=== PATIENT | male | born 1965 | race Caucasian/White ===

== ENCOUNTER 2025-01-16 09:37 | Outpatient (AMB) | payer OTHER, SELFPAY ==
--- NOTE | 2025-01-16 09:45 | A.OFFPC_ITS ---
Vital Signs 3 01/16/25 09:51 Height 6 ft Weight 201 lb BMI 27.3 BP 117/67 Blood Pressure Location Lt brachial Position Sitting Respiration 12 Pulse 68 Pulse Source Pulse Oximeter Temp 97.6 F Temp Source Oral Pulse Oximetry (%) 100 Oxygen Delivery Method Simple Mask Intake Visit Reasons: Neurology Hospitalist establish care Intake Note: New patient to establish care Configuration Engineer Required: No Allergies No Known Allergies Allergy (Verified 01/16/25 09:46) Medication List - Last Reconciled 01/16/25 by RANDI Gonzalez- aspirin 81 mg PO DAILY diltiazem HCl ER 180 mg PO DAILY hydrochlorothiazide 25 mg PO QAM losartan 100 mg PO DAILY pantoprazole 40 mg PO BID Tobacco use date assessed: 01/16/25 Dental Screening Dental Screen Date: 01/16/25 Did you have a dental visit in the last 12 months?: No Did you have a dental problem in the last 6 months where you did not have access to dental care?: No Was dental information given to patient?: No HPI HPI Comments 2 History of Present Illness0 Details Here today for a Transitional Care Management Visit Discharge summary reviewed. 59 y/o M with esophageal carcinoma (01/01 25), polyneuritis, etoh dependence, HTN, erosive gastritis, Cobb's Esophagous, subacute nondisplaced posterior L 3,6,7,8 subacute rib fractures (12/2024) Severe CAD, 3 mm RUL nodule, severe PAD with calcified plaques and critical stenosis of R superficial femoral artery and L common femoral and L superficial artery, chronic anemia, hx of GIB , tubular adenoma of colon, duodenal ulcer admitted for etoh withdrawl 12/24-12/26/24, drinking 10-12 nips per day; treated w/ phenobarb and CIWA protocol. Returned for scheduled EGD and had complications of IV infilatrate requiring re-admit for monitoring 12/27-12/28/24. Admission Date: 12/24/24 and d/c home 12/27/24, readmitted 12/27/24 Discharge Date: 12/28/24 Hospital: [facility] Date of interactive contact with Nurse Vergara: as documented in chart Medications reconciled & updated. During todays TCM visit, the d/c summary was reviewed, along with the need for or follow-up on pending diagnostic tests and treatments, as necessary interaction with other health respiratory care technician who will assume or reassume care of the beneficiary?s system-specific problems was done or is being worked on, education was provided to the beneficiary, family, guardian, and/or caregiver, referrals to establish or re-establish and arrange needed community resources we completed, assistance in scheduling required follow-up with community providers and services & finally updated medication list given to patient/caregiver Admissions: GIB [facility] ETOH withdrawl IV complication social: lives w/ sig other, Brenda. 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 New patient to me, first visit today. - Esophageal carcinoma with recent endos copic findings; awaiting PET scan and oncology consultation. - Significant history of alcohol depende nce, currently managing three weeks of sobriety. - Hypertension with current pharmacother apy regimen. - Erosive gastritis treated with pantopr azole. 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 - Severe coronary artery disease; periph eral arterial disease of the lower extremities with blockages. - Anemia due to a history of GI bleed. - Tubular adenoma and duodenal ulcer not ed in past evaluations. - New dysuria and weak urinary stream; p ossible prostate evaluation considered. - Long-standing smoking habit linked to arterial disease. - Lightheadedness during urination likel y due to low blood counts. - Not working due to medical issues but has the support of significant other. - Needs FMLA and short term dis. ppw com pleted, this was done today Review of Systems - Cardiovascular: Reports history of sev ere coronary artery disease, lower extremity blockages. - Gastrointestinal: Reports history of e sophageal carcinoma, gastritis, Cobb's esophagus, duodenal ulcer, tubular adenoma. - Genitourinary: Reports dysuria, weak u rinary stream, increased frequency. Denies blood in urine. - Hematologic: Reports history of chroni c anemia. - Addiction/Substance Use: Reports three weeks of sobriety from alcohol, history of smoking. - Mental Health: Denies need for addicti on medicine support. - Neurological: Reports lightheadedness with urination. - Respiration: Denies shortness of breat h, chest pain. Physical Exam General: Well developed, well nourished, in no acute distress. Appears stated age. Head: Normocephalic, atraumatic. Eyes: Pupils are equal, round and reactive to light and accommodation. Conjunctivae are clear. Lungs: Clear to auscultation bilaterally. No rales, rhonchi or wheeze noted. Good air flow in all nielsen. Heart: Regular rate and rhythm. No murmurs, click, rubs or gallops are noted. Abdomen: Bowel sounds present in all quadrants. The abdomen is soft, nontender, with no masses or organomegaly noted. No hernias are noted. Musculoskeletal: Joints are nontender, without swelling, redness, or effusions. Pulses: Weak pulses noted in the lower extremities, hairless, skin intact, abnormal sensations bilat Extremities: No clubbing, cyanosis nor edema is noted. Psych: Mood and affect appropriate. Discussion Notes I discussed with the patient the management and follow-up plans for his esophageal carcinoma, including the necessity of oncological consultation and upcoming PET scan. I reviewed the implications of malignancy findings and the importance of follow-up with a thoracic surgeon regarding potential lung findings. We addressed the importance of maintaining sobriety, which the patient has successfully adhered to for three weeks, motivated by personal reasons. Regarding the patient's severe cardiovascular condition, I highlighted the need for follow-up in the future and discussed the option of smoking cessation to mitigate related risks. We talked about the recent urinary symptoms and the plan to evaluate his prostate with lab work, understanding it would take a week for results. I advised the patient on the structure for refilling medications and arranged for necessary labs. Finally, we handled administrative aspects, including completion of family leave and disability paperwork. Assessment and Plan 1. Esophageal Carcinoma - PET scan pending. - Oncology consultation for treatment pl anning. 2. Alcohol Dependence - Patient maintains sobriety. was on vivitrol and naltrexone in the past offered [facility] referral, declined 3. Hypertension - Continue current antihypertensive abdias men. 4. Erosive Gastritis - Continue pantoprazole. 5. Coronary Artery and Peripheral Artery Disease - Monitor status; discuss smoking cessat ion. on ASA consider vascular referral once Onco workup complete 6. Dysuria and Weak Urinary Stream - Evaluate prostate hormone level. consider starting flomax after results are back 7. Chronic Anemia - Monitor for symptoms like lightheadedn ess. Patient Instructions - Schedule and complete the PET scan and oncology appointment. - Maintain sobriety and discuss any chal lenges at follow-up. - Continue taking prescribed blood press ure and gastritis medications. - Watch for symptoms like increased urin e frequency or changes in severity. - Monitor for lightheadedness, especiall y at night or when urinating. - Contact our office if you experience a ny new or worsening symptoms. - load out supervisor any necessary paperwork from [employer]. - RTO in the few weeks for close interim fu , sooner prn Consent Patient was informed and verbally consented to the use of an ambient scribe for clinic note documentation during this visit. Total time spent caring for the patient today was 90 minutes. This includes time spent before the visit reviewing the chart, time spent during the visit, and time spent after the visit on documentation, reviewing laboratory results, diagnostic imaging, medications, performing a medically necessary evaluation, counseling on diagnoses, care coordination, ordering appropriate tests, ordering appropriate medications, review of tests performed by other providers, reporting test results with the patient, communication with other healthcare providers. [facility], [facility] Medical History (Updated 01/16/25 @ 17:11 by Kenzie Orozco [employer]SEMBLER-AUGUSTIN) No pertinent family history No pertinent past medical history Surgical History (Updated 01/16/25 @ 10:12 by RANDI Gonzalez-AUGUSTIN) History of colonoscopy (~11/2024) No pertinent past surgical history Social History (Updated 01/16/25 @ 09:55 by Jeovany Bliss MA) Household Members: Significant Other and Family Housing: House Are you a primary care transition mgr to a significant other at home: No Do you presently have visiting nurse or other home services: No Patient Tobacco Use Status: Current everyday Tobacco user Cigarettes Per Day: 10 Years Smoked: 40 e-Cigarette/Vaping Use: Never Used Second Hand Smoke Exposure: No service: No Current occupational status: employed 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 1. Little interest or pleasure in doing things: not at all 2. Feeling down, depressed, or hopeless: not at all 3. Trouble falling or staying asleep, or sleeping too much: not at all 4. Feeling tired or having little energy: not at all 5. Poor appetite or overeating: not at all 6. Feeling bad about yourself - or that you are a failure or have let yourself or your family down: not at all 7. Trouble concentrating on things, such as reading the newspaper or watching television: not at all 8. Moving or speaking so slowly that other people could have noticed. Or the opposite - being so fidgety or restless that you have been moving around a lot more than usual: not at all 9. Thoughts that you would be better off or of hurting yourself in some way: not at all Total score: 0 Depression Screening Interpretation: Negative Depression Screening Done: Yes 13861 - PHQ-9 Billing: Yes Source: Developed by Drs. Kenny Lau, Ebony Florence, Emiliano Huber and colleagues, with an educational elissa from [employer]. Thrive Questionnaire Date Thrive assessed: 01/16/25 I am a: Patient What is your living situation today?: I have a steady place to live Within the past 12 months, did the food you bought not last and you didn't have the money to get more?: Never true Within the past 12 months, did you worry whether your food would run out before you got money to buy more?: Never true Do you have trouble paying for medicines?: No Do you have trouble getting transportation to medical appointments?: No Do you have trouble paying your heating and electricity bill?: No Do you have trouble taking care of your child, family member or friend?: No Do you have trouble with day-to-day activities such as bathing, preparing meals, shopping, managing finances, etc.?: No Are you currently unemployed and looking for a job?: No Are you interested in more education?: No Please select the resources that you would like help with: None Currently or been in a relationship where the following occur: No concerns reported THRIVE Score: 0 AUDIT C Alcohol Use Questionnaire (AUDIT-C) 1. How often do you have a drink containing alcohol?: 2-4 times a month 2. How many drinks containing alcohol do you have on a typical day when you are drinking?: 3 or 4 3. How often do you have six or more drinks on one occasion?: Less than monthly Total Score: 4 Score Reviewed/Action Taken: Yes CURLY-7 AMB Questionnaire CURLY-7 Date CURLY - 7 assessed: 01/16/25 Feeling nervous, anxious, or on edge: 0 = Not at all Not being able to stop or control worryin = Not at all Worrying too much about different things: 0 = Not at all Trouble relaxin = Not at all Being so restless that it is hard to sit still: 0 = Not at all Becoming easily annoyed or irritable: 0 = Not at all Feeling afraid as if something awful might happen: 0 = Not at all Total CURLY-7 score (0-4 normal; 5-9 mild; 10-14 moderate; 15-21 severe): 0 Source: Developed by Drs. Kenny Lau, Ebony Florence, Emiliano Huber and colleagues, with an educational elissa from [employer]. CURLY-7 Assessment Billing CURLY-7 Assessment Tool: CURLY-7 Assessment 47888 Physical exam (Primary Care) Vital Signs: Last Vital Signs Temp 97.6 F 01/16/25 09:51 Pulse 68 01/16/25 09:51 Resp 12 01/16/25 09:51 BP 117/67 01/16/25 09:51 Pulse Ox 100 01/16/25 09:51 Oxygen Delivery Method Simple Mask 01/16/25 09:51 BMI result Body Mass Index 27.3 Tobacco/Smoking Status: Tobacco use Status Tobacco use date assessed 01/16/25 01/16/25 09:52 Patient Tobacco Use Status Current everyday Tobacco 01/16/25 09:55 e-Cigarette/Vaping Use Never Used 01/16/25 09:55 Are you ready to quit: No Tobacco cessation counseling provided: Yes Relapse Prevention: discussed the importance of a supportive environment, discussed extending NRT, discussed negative mood or depression after quitting, weight gain after smoking is common and discussed dietary, exercise and/or lifestyle changes Number of minutes spent counselin CPT code: 01863 - 4-10 Minutes PHQ-9: PHQ-9 Score PHQ-9: Total score 0 01/16/25 09:53 Depression Screening Interpretation: Negative Thrive Assessment: Date of Thrive Assessment Date Thrive assessed 01/16/25 01/16/25 09:52 Currently or been in a relationship where the following occur: No concerns reported Coding Level of Care Code New Pt Level 5 (40640) Complex EM visit Add On G2211 Diagnoses Hospital discharge follow-up Z09 Encounter to establish care Z76.89 Alcohol dependence with unspecified alcohol-induced disorder F10.29 Substance use status: unspecified alcohol-induced disorder Coronary artery disease involving [place] coronary artery of [place] heart without angina pectoris I25.10 Associated angina: without angina Coronary Disease-Associated Artery/Lesion type: [place] artery [place] vs. transplanted heart: [place] heart 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 Erosive gastritis K29.60 Esophageal carcinoma C15.9 Primary hypertension I10 Hypertension type: primary hypertension PAD (peripheral artery disease) I73.9 Right upper lobe pulmonary nodule R91.1 Tetanus, diphtheria, and acellular pertussis (Tdap) vaccination declined Z28.21 Nocturia R35.1 Tobacco dependence F17.200 Encounters for other specified administrative purpose Z02.89 Polyneuritis G62.9 CPT Codes [facility] OUTPT/OFFICE VIS - G2212 Additional Codes CURLY-7 Assessment Billing - CURLY-7 Assessment Tool: CURLY-7 Assessment 88461 ([id number]) PHQ-9 - 43464 - PHQ-9 Billing: Yes ([id number]) Vital Signs *Quality* - CPT code: 44452 - 4-10 Minutes ([id number]) Assessment & Plan Assessment & Plan (1) Hospital discharge follow-up: Code(s): Z09 - Encounter for follow-up examination after completed treatment for conditions other than malignant neoplasm (2) Encounter to establish care: Code(s): Z76.89 - Persons encountering health services in other specified circumstances (3) Alcohol dependence: Code(s): F10.20 - Alcohol dependence, uncomplicated Category: Medical Qualifiers: Substance use status: unspecified alcohol-induced disorder Qualified Code(s): F10.29 - Alcohol dependence with unspecified alcohol-induced disorder (4) CAD (coronary artery disease): Code(s): I25.10 - Atherosclerotic heart disease of [place] coronary artery without angina pectoris Category: Medical Qualifiers: Associated angina: without angina Coronary Disease-Associated Artery/Lesion type: [place] artery [place] vs. transplanted heart: [place] heart Qualified Code(s): I25.10 - Atherosclerotic heart disease of [place] coronary artery without angina pectoris (5) Cobb esophagus with high grade dysplasia: Code(s): K22.711 - Cobb's esophagus with high grade dysplasia Category: Medical (6) Erosive gastritis: Code(s): K29.60 - Other gastritis without bleeding Category: Medical (7) Esophageal carcinoma: Code(s): C15.9 - Malignant neoplasm of esophagus, unspecified Category: Medical (8) HTN (hypertension): Code(s): I10 - Essential (primary) hypertension Category: Medical Qualifiers: Hypertension type: primary hypertension Qualified Code(s): I10 - Essential (primary) hypertension (9) PAD (peripheral artery disease): Code(s): I73.9 - Peripheral vascular disease, unspecified Category: Medical (10) Right upper lobe pulmonary nodule: Code(s): R91.1 - Solitary pulmonary nodule Category: Medical (11) Tetanus, diphtheria, and acellular pertussis (Tdap) vaccination declined: Code(s): Z28.21 - Immunization not carried out because of patient refusal Category: Medical (12) Nocturia: Code(s): R35.1 - Nocturia Category: Medical (13) Tobacco dependence: Comment: 20 year pack hx Code(s): F17.200 - Nicotine dependence, unspecified, uncomplicated Category: Medical (14) Encounters for other specified administrative purpose: Comment: 12/05/24- 01/02/25, returned and was sent home, has been out since this time. Code(s): Z02.89 - Encounter for other administrative examinations Category: Medical (15) Polyneuritis: Code(s): G62.9 - Polyneuropathy, unspecified Category: Medical Plan . Orders: Orders 2 PSA, Ultra Sensitive Today R35.1 - Nocturia Medications: New 2 hydrochlorothiazide 25 mg PO QAM 90 tabs 0RF pantoprazole 40 mg PO BID 90 tabs 0RF aspirin 81 mg PO DAILY 90 tabs 0RF diltiazem HCl ER 180 mg PO DAILY 90 tabs 0RF losartan 100 mg PO DAILY 90 tabs 0RF Patient Instructions: Walk-In Care (Urgent Care): We Make it Easy Walk-in for urgent medical issues such as: ? Seasonal Allergies ? Insect Bites ? Cough ? Diarrhea ? Acute Asthma Attacks ? Back, Knee or Joint Pain ? Ear Infection ? Fever without a Rash ? Headaches ? Nausea ? Alligator Eye, Rash or Skin Irritation ? Sore Throat ? Sports Physicals ? Vomiting Most insurances are accepted. Patients do not need to be part of the [facility] to seek care at the walk-in clinic. Locations [address] [facility] [place] [address] ? [phone] [facility] Walk-In Care in [place] provides services to ages 18 and over. Open Tuesday-Tuesday: 8 a.m. to 5 p.m. and Tuesday: 9 a.m. to 3 p.m.* *Hours may vary due to staffing availability. To confirm Walk-In Care hours in [place], please call [phone]. [address] [place] [address] ? [phone] [facility] Walk-In Care in [place] provides services to ages 12 and over. Open Tuesday-Tuesday: 8 a.m. to 5 p.m. Hours may vary due to staffing availability. To confirm Walk-In Care hours in [place], please call [phone]. LABORATORY SERVICES: [facility] ? Primary Location [address] [place] [address] Tuesday through Tuesday 6:00 AM ? 5:00 PM Tuesday 7:00 AM ? 11:00 AM* [phone] The [facility] is centrally located near the front entrance of the [facility] for easy outpatient access. Convenient parking is provided for outpatients. *Hours may vary due to staffing availability. To confirm Laboratory hours for any location, please call [phone]. Offsite Location For your convenience, we offer offsite laboratory draw stations at the following locations: [address] [place] [address] ? [address], [address] Tuesday through Tuesday 7:30 AM ? 1:00 PM* [phone] *Hours may vary due to staffing availability. To confirm Laboratory hours for any location, please call [phone]. [place] ? [address] Tuesday through Tuesday 6:00 AM ? 3:30 PM* Tuesday 6:30 AM ? 3 PM* [phone] *Hours may vary due to staffing availability. To confirm Laboratory hours for any location, please call [phone]. [address] [facility] Tuesday through Tuesday 7:30 AM ? 4:00 PM* [phone] *Hours may vary due to staffing availability. To confirm Laboratory hours for any location, please call [phone]. [address] [facility] Tuesday through 9:00 AM ? 4:00 PM* *Hours may vary due to staffing availability. To confirm Laboratory hours for any location, please call [phone]. Appointments are not necessary. Walk-ins are welcome. Like all the departments throughout the [facility], our Lab undergoes frequent reviews to ensure the quality and accuracy of test results, and our staff takes special pride in its status as a nationally accredited facility. Patient Portal: ONE PATIENT. ONE RECORD. BETTER CARE. [facility] has a fully integrated, cutting- edge mobile electronic health information system that has revolutionized the way we care for our patients and manage our organization. This system improves communication and coordination enabling us to provide safe, higher-quality care, and an overall positive experience for staff and patients. Our first priority, as always, is to deliver the highest quality care possible. The system is running in the background supporting that priority. This portal is for all [facility] services and practices. If you are experiencing any technical difficulties with enrolling or logging into the Patient Portal please complete the [facility] Patient Portal Technical Support Form. [facility] now offers a new secure on-line interactive tool for patients to review their health information ? ?Patient Portal. This interactive web portal will enable patients and their families to take an active role in their care by providing easy, secure access to their health information via the internet. The Patient Portal provides patients with instant access to their health information, including laboratory results, medications, allergies, demographic information, visit history, and more. In addition to managing their own care, parents and health care proxies with authorized consent will appreciate the ability to access the records of those individuals for whom they provide care. Please note: if you wish to gain access (Proxy) to another patient?s portal, you will be required to come to the Medical Records Department in person at [facility]. Both the patient giving proxy access and the proxy will need to provide photo identification and complete the appropriate authorization. The Patient Portal also allows track their appointments online. The [facility] Patient Portal also saves patients time by allowing them to submit updates to their demographic and contact information prior to their visits. Portal email notifications will also alert patients to any new activity on their portal, such as test results and new appointments. In order to initially enroll in the [facility] Patient Portal, you will need to enter some required information including the following: * your [facility] Medical Record number * your personal home email address * name * date of Please note: In order to enroll in the [facility] Patient Portal, we need to have your email address on file in your electronic medical record. ?The email address needs to be specific for one person (yourself) in order for your Portal enrollment to be successful. ?You can update your email address in person with our Registration staff when you are registering for a hospital visit. ?Otherwise, you will need to come to the Health Information Management (Medical Records) Department at [facility]. ?We are open from Tuesday ? Tuesday from 7:30 a.m. ? 4:30 p.m. ?You will be required to present a photo id. Once you have successfully enrolled in the Patient Portal, you will receive a one-time user id and password for the Portal, sent to your email address. ?This will allow you to log into the Patient Portal within 99 hrs and reset your own logon id and password, and define personal security questions. ?Once your permanent login and password have been set, you can log into the [facility] Patient Portal at any time via the blue button above or from the Portal Logon button on any page of the [facility] website. [facility] and [facility] encourage all of our patients to enroll in Patient Portal as it presents a valuable opportunity for patients and their families to actively participate in their care and stay healthy Welcome to [facility]. ?We look forward to working with you.
[2025-01-16 09:51] VITALS: BP 117/67; PULSE 68; RESP 12; TEMP 36.4; O2SAT 100; BMI 27.3
--- OUTSIDE RECORDS SUMMARY | 2025-01-16 10:05 | XMS_ITS | Continuity of Care Document ---
Author Organization [facility] Address [address] [place] [address]- Care Team Providers Care Wallpaper Consultant Name Role Phone Not on Staff, PCP Primary Care Physician Unavail able Encounter [facility] Date(s): 12/13/24 - 01/12/25 [facility] [address] [place] [address]- Attending Physician: Vikki Ramos Admitting Physician: Vikki Ramos Referring Physician: trVikki Encounter Type: Triage Allergies, Adverse Reactions, Alerts Substance Criticality Severity Reaction Reaction Severity Status Tylenol Active Medications acetaminophen-codeine 120 mg-12 mg/5 mL oral liquid 5 mL, By Mouth, Every 4 hours, PRN for pain, not to exceed 4000 mg acetaminophen per day, # 120 mL,0 Refills, Maintenance, 12/27/24 5:25:00 PM EDT, Liquid, [facility], Partial fill uponpatient request if the prescription is for a schedule II opioid drug., 5 mL By Mouth Every 4 hours,PRN:for pain,Instr:not to exceed 4000 mg acetaminophen per day, 183, cm, 12/27/24 16:24:00 EDT, Height, 92.1, kg, 12/27/24 16:24:00 EDT, Dry Weight Start Date: 12/27/24 Status: Ordered Quantity: 120.0 Unit: mL Repeat number: 1 aspirin 81 mg oral capsule 1 capsule = 81 mg, By Mouth, Daily, do not exceed 48 capsules in 24 hours, # 30 capsule, 0 Refills,Maintenance, 12/24/24 3:27:00 PM EDT, Capsule, Partial fill upon patient request if the prescriptionis for a schedule II opioid drug. Start Date: 12/24/24 Status: Ordered Quantity: 30.0 Unit: capsule Repeat number: 1 Carafate 1 gm/10 ml oral suspension 10 mL = 1 Gm, By Mouth, 3 times a day before meals and bedtime, # 840 mL, 0 Refills, Maintenance, 12/27/24 5:25:00 PM EDT, [facility], Partial fill upon patient request if the prescription is for a schedule II opioid drug., 183, cm, 12/27/24 16:24:00 EDT, Height, 92.1, kg, 12/27/24 16:24:00 EDT, Dry Weight Start Date: 12/27/24 Stop Date: 01/17/25 Status: Ordered Quantity: 840.0 Unit: mL Repeat number: 1 dilTIAZem 180 mg/24 hours oral tablet, extended release 1 tablet = 180 mg, By Mouth, Daily, 0 Refills, Maintenance, 12/04/24 11:58:00 PM EDT, Partial fill upon patient request if the prescription is for a schedule II opioid drug. Start Date: 12/04/24 Status: Ordered Repeat number: 1 hydrochlorothiazide 25 mg oral tablet 25 mg, 1, tablet, By Mouth, Daily, Refills 0, Maintenance, 12/04/24 11:58:00 PM EDT, Partial fill upon patient request if the prescription is for a schedule II opioid drug. Start Date: 12/04/24 Status: Ordered Repeat number: 1 losartan 100 mg oral tablet 1 tablet = 100 mg, By Mouth, Daily, 0 Refills, Maintenance, 12/04/24 11:58:00 PM EDT, Partial fill upon patient request if the prescription is for a schedule II opioid drug. Start Date: 12/04/24 Status: Ordered Repeat number: 1 pantoprazole 40 mg oral delayed release tablet = 40 mg, By Mouth, 2 times a day, for 90 days, take 1 tablet by mouth 2 times per day for 8 weeks and then daily thereafter, # 150 tablet, 2 Refills, Hard Stop 09/04/25 1:40:00 PM EST, 12/08/24 1:40:00PM EDT, EC Tablet, 183, cm, 12/06/24 7:32:00 EDT, Height, 93.2, kg, 12/04/24 23:39:00 EDT, Dry Weight Start Date: 12/08/24 Stop Date: 09/04/25 Status: Ordered Quantity: 150.0 Unit: tablet Repeat number: 3 pantoprazole 40 mg oral delayed release tablet = 40 mg, By Mouth, 2 times a day, take 1 tablet by mouth 2 times per day for 8 weeks and then dailythereafter, # 150 tablet, 2 Refills, Maintenance, 09/04/25 1:40:00 PM EST, EC Tablet, 183, cm, 12/28/24 6:36:00 EDT, Height, 92.1, kg, 12/27/24 16:24:00 EDT, Dry Weight Start Date: 09/04/25 Stop Date: 06/01/26 Status: Ordered Quantity: 150.0 Unit: tablet Repeat number: 3 Problem List Condition Confirmation Course Effective Dates Status H ealth Status Informant Acute blood loss anemia Confirmed Active Acute GI bleeding Confirmed Active Alcohol user Confirmed Active Cobb's esophagus Confirmed Active Duodenal ulcer Confirmed Active Erosive gastritis Confirmed Active Esophageal adenocarcinoma in situ Confirmed Active Hypertension Confirmed Active Hypokalemia Confirmed Active Hypomagnesemia Confirmed Active Neuropathy Confirmed Active Prediabetes Confirmed Active Tubular adenoma Confirmed Active Social History Social History Type Response Smoking Status 10 or more cigarette s (1/2 pack or more)/day in last 30 days entered on: 12/04/24 Sex Male Sex Representation Male (finding) Patient Care team information Care Team Personnel Name: Rossy Perdomo RN Position: [facility] RN Member Role: Primary Care Nurse Name: Elisha Thornton RN Position: [facility] RN Supv Member Role: Primary Care Nurse Name: Diana Barrett RN Position: S RN Member Role: Primary Care Nurse Name: Ksenia Bajwa RN Position: S RN Member Role: Primary Care Nurse Name: Not on Staff, PCP Position: [facility] Physician (General Medicine) Member Role: PCP Name: Diane Macario RN Position: S RN Member Role: Primary Care Nurse Name: Amy Patel LPN Position: S RN Member Role: Primary Care Nurse Care Team Related Persons Name: REN BOBBY Insurance Providers Guarantor name: [employer] Health Plan Information #: 1 Payer: [employer]IG[employer] HMO POS Member Number: NA Policy Number: NA Group Number: [id number]
== END 2025-01-16 10:17 | disposition home or self-care (01) ==
LOC: HO.HMCFM 09:38
PROVIDERS: PCP Nurse Practitioner Family; Visit Provider Nurse Practitioner Family
DX: I25.10 Atherosclerotic heart disease of native coronary artery without angina pectoris (principal); F10.29 Alcohol dependence with unspecified alcohol-induced disorder; C15.9 Malignant neoplasm of esophagus, unspecified; Z09 Encounter for follow-up examination after completed treatment for conditions other than malignant neoplasm; Z76.89 Persons encountering health services in other specified circumstances; K22.711 Barrett's esophagus with high grade dysplasia; K29.60 Other gastritis without bleeding; I10 Essential (primary) hypertension; I73.9 Peripheral vascular disease, unspecified; R91.1 Solitary pulmonary nodule; Z28.21 Immunization not carried out because of patient refusal; R35.1 Nocturia

== ENCOUNTER → 2025-01-16 09:37 | Outpatient (BNVA) | payer OTHER, SELFPAY | PROVIDERS: PCP Nurse Practitioner Family; Visit Provider Nurse Practitioner Family | DX: I10 Essential (primary) hypertension (principal); K22.70 Barrett's esophagus without dysplasia; R91.1 Solitary pulmonary nodule; I73.9 Peripheral vascular disease, unspecified; K29.70 Gastritis, unspecified, without bleeding; I25.10 Atherosclerotic heart disease of native coronary artery without angina pectoris; R30.0 Dysuria; R39.12 Poor urinary stream; D64.9 Anemia, unspecified; F10.29 Alcohol dependence with unspecified alcohol-induced disorder; K22.711 Barrett's esophagus with high grade dysplasia; K29.60 Other gastritis without bleeding; R35.1 Nocturia; Z09 Encounter for follow-up examination after completed treatment for conditions other than malignant neoplasm; Z28.21 Immunization not carried out because of patient refusal; Z76.89 Persons encountering health services in other specified circumstances | CPT/HCPCS: 96127 ==

== ENCOUNTER 2025-01-16 10:27 | Outpatient (REF) | payer OTHER, SELFPAY ==
[2025-01-18 21:49] LABS: PSA, Ultra Sensitive 0.37 ng/mL
== END 2025-01-16 10:28 | disposition home or self-care (01) ==
LOC: HO.WFDLDS 10:27
PROVIDERS: Visit Provider Nurse Practitioner Family
DX: R35.1 Nocturia (principal); Z12.5 Encounter for screening for malignant neoplasm of prostate
CPT/HCPCS: 36415; 84153

== ENCOUNTER 2025-02-20 11:24 | Outpatient (AMB) | payer OTHER, SELFPAY ==
--- NOTE | 2025-02-20 11:33 | MHC.PC.OV ---
Vital Signs 02/20/25 11:35 02/20/25 12:00 Height 6 ft Weight 197 lb 2 oz BMI 26.7 BP 102/64 Blood Pressure Location Rt brachial Position Sitting Respiration 14 Pulse 107 H Pulse Source Pulse Oximeter Temp 99.5 F 98.2 F Temp Source Oral Oral Pulse Oximetry (%) 98 Oxygen Delivery Method Room Air Intake Visit Reasons: a few weeks 30 min close interim check in Intake Note: Follow up. Needs refill on hydrochlorothiazide. Corporate Receptionist Required: No Allergies No Known Allergies Allergy (Verified 02/20/25 11:45) Medication List - Last Reconciled 02/20/25 by Kenzie Orozco, [employer]- aspirin 81 mg PO DAILY diltiazem HCl ER 180 mg PO DAILY hydrochlorothiazide 25 mg PO QAM losartan 100 mg PO DAILY pantoprazole 40 mg PO BID Tobacco use date assessed: 02/20/25 Dental Screening Dental Screen Date: 01/16/25 HPI HPI Comments History of Present Illness Details 59 y/o M with esophageal carcinoma (12/2024), polyneuritis, etoh dependence, HTN, erosive gastritis, Cobb's Esophagous, subacute nondisplaced posterior L 3,6,7,8 subacute rib fractures (12/2024) Severe CAD, 3 mm RUL nodule, severe PAD with calcified plaques and critical stenosis of R superficial femoral artery and L common femoral and L superficial artery, chronic anemia, hx of GIB , tubular adenoma of colon, duodenal ulcer admitted for etoh withdrawl 12/24-12/26/24, drinking 10-12 nips per day; treated w/ phenobarb and CIWA protocol. Returned for scheduled EGD and had complications of IV infilatrate requiring re-admit for monitoring 12/27-12/28/24. social: lives w/ sig other, Brenda. 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 Specialist GI Dr Rueda Thoracic surgery Onco Dr Kamar Logan History of Present Illness - The patient is a 59-year-old male presenting for close iterim fu of chronic conditons Dx with esophageal adenocarcinoma in situ. - History of Cobb's Esophagus with high-grade dysplasia Thoracic Consult Dr Cory Borjas 01/18/25 reviewed FU PRN DX: Intramucosal esophageal adenocarcinoma in situ Repeat EGD 03/2025 Does not require esophagectomy chemo immunotherapy or radiation @ this time - Hypertension managed with hydrochlorothiazide and losartan. - Reports urinary frequency causing nocturia, no prior medication trial. PSA WNL. - Neuropathy symptoms in triceps and gluteal regions, no prior treatment. Declines use of thiamine and folic acid. Cont to drink etoh. cut down Declines CCC or help. - Unintentional weight loss with decreased appetite and quick satiety noted. - Social history includes tobacco use and reduced alcohol consumption. - Reviewed w/ him his CAD and PAD and recommendations to fu. Declined referral to [facility] at this time. Willing to start Statin. Review of Systems - Constitutional: Reports weight loss. - Gastrointestinal: Reports adequate management of GERD with pantoprazole. - Genitourinary: Reports urinary frequency; denies hematuria or dysuria. - Neurological: Reports neuropathy in upper and lower extremities. - Hematological: Denies excessive bleeding or bruising. - Psychiatric: Denies anxiety or depression. Physical Exam General: Well developed, well nourished, in no acute distress. Appears stated age. Head: Normocephalic, atraumatic. Eyes: Pupils are equal, round and reactive to light and accommodation. Conjunctivae are clear. Lungs: Clear to auscultation bilaterally. No rales, rhonchi or wheeze noted. Good air flow in all nielsen. Heart: Regular rate, occassional arrhythmia noted EKG done which showed PACs, 2/6 murmurs, No click, rubs or gallops are noted. Musculoskeletal: Joints are nontender, without swelling, redness, or effusions. Pulses: Weak pulses noted in the lower extremities, hairless, skin intact, abnormal sensations bilat Extremities: No clubbing, cyanosis nor edema is noted. Psych: Mood and affect appropriate. Discussion Notes For hypertension, I confirmed current medications and provided a refill for hydrochlorothiazide. Regarding urinary symptoms, I proposed initiating Flomax (tamsulosin) in the evening to mitigate nocturia by improving bladder emptying. For neuropathy, etoh cessation encouraged along w/ folate and thiamine, he declined this. The patient was informed that weight management should focus on caloric density due to decreased appetite. I provided anticipatory guidance on possible dietary supplements & ask he call GI Dr Toussaint office w/ update on this. We reviewed lifestyle modifications for overall health, including the importance of tobacco cessation and continued reduced alcohol use. Follow-up was agreed upon for April, with repeat labs prior to the visit. The importance of compliance with prescribed therapy and awareness of any worsening symptoms were emphasized. Assessment and Plan 1. Esophageal Adenocarcinoma in situ - PET scan stable; no surgery required. Continue care w/ team 2. Hypertension - Continue current medication regimen. Refilled hydrochlorothiazide. 3. Urinary Frequency - Start Flomax (tamsulosin) in the evening. 4. Neuropathy - Etoh cessation - Monitor symptoms. Evaluate further if needed. 5. Weight Loss and Appetite - Encourage caloric-dense diet. - FU with GI Dr Rueda. - EGD 03/2025 6. Tobacco and Alcohol Consumption - Advise cessation and moderation. Declined asst 7 CAD and PAD. Start atorvastatin 40mg QD, cont ASA 81 mg. Declined vasc. referral . 8. PAC Asx. On diltiazem 9. Heart murmur will need to check echo pt overwhelmed w/ medical appts and cost; will delay at this time, Patient Instructions - Take Flomax every evening as directed. - Continue taking blood pressure medications. - Eat small, frequent, calorie-rich meals. - Monitor any changes in urinary frequency or neuropathy symptoms. - Stop smoking and limit alcohol use. - Return for follow-up in April with lab work completed one week prior. Consent Patient was informed and verbally consented to the use of an ambient scribe for clinic note documentation during this visit. Total time spent caring for the patient today was 50 minutes. This includes time spent before the visit reviewing the chart, time spent during the visit, and time spent after the visit on documentation, reviewing laboratory results, diagnostic imaging, medications, performing a medically necessary evaluation, counseling on diagnoses, care coordination, ordering appropriate tests, ordering appropriate medications, review of tests performed by other providers, reporting test results with the patient, communication with other healthcare providers. [facility] Medical History (Updated 02/20/25 @ 15:14 by RANDI Gonzalez-AUGUSTIN) No pertinent family history No pertinent past medical history Surgical History (Updated 01/16/25 @ 10:12 by RANDI Gonzalez-AUGUSTIN) History of colonoscopy (~11/2024) No pertinent past surgical history Social History (Updated 01/16/25 @ 09:55 by Jeovany Bliss MA) Household Members: Significant Other and Family Both parents involved: No Caregiver staying overnight: No Housing: House Are you a primary pediatric care coordinator to a significant other at home: No Do you presently have visiting nurse or other home services: No 75 years or older and lives alone: No Patient Tobacco Use Status: Current everyday Tobacco user Cigarettes Per Day: 10 Years Smoked: 40 e-Cigarette/Vaping Use: Never Used Second Hand Smoke Exposure: No service: No Current occupational status: employed 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 Cognitive needs: No Hearing needs: No Vision needs: No Questionnaire Thrive Questionnaire Date Thrive assessed: 01/16/25 I am a: Patient What is your living situation today?: I have a steady place to live Within the past 12 months, did the food you bought not last and you didn't have the money to get more?: Never true Within the past 12 months, did you worry whether your food would run out before you got money to buy more?: Never true Do you have trouble paying for medicines?: No Do you have trouble getting transportation to medical appointments?: No Do you have trouble paying your heating and electricity bill?: No Do you have trouble taking care of your child, family member or friend?: No Do you have trouble with day-to-day activities such as bathing, preparing meals, shopping, managing finances, etc.?: No Are you currently unemployed and looking for a job?: No Are you interested in more education?: No Please select the resources that you would like help with: None Currently or been in a relationship where the following occur: No concerns reported THRIVE Score: 0 AUDIT C Alcohol Use Questionnaire (AUDIT-C) 1. How often do you have a drink containing alcohol?: Monthly or less 2. How many drinks containing alcohol do you have on a typical day when you are drinking?: 3 or 4 3. How often do you have six or more drinks on one occasion?: Never Total Score: 2 CURLY-7 AMB Questionnaire CURLY-7 Date CURLY - 7 assessed: 01/16/25 Source: Developed by Drs. Kenny Lau, Ebony Florence, Emiliano Huber and colleagues, with an educational elissa from [employer]. Physical exam (Primary Care) Vital Signs: Last Vital Signs Temp 98.2 F 02/20/25 12:00 Pulse 107 H 02/20/25 11:35 Resp 14 02/20/25 11:35 BP 102/64 02/20/25 11:35 Pulse Ox 98 02/20/25 11:35 Oxygen Delivery Method Room Air 02/20/25 11:35 BMI result Body Mass Index 26.7 Tobacco/Smoking Status: Tobacco use Status Tobacco use date assessed 02/20/25 02/20/25 11:38 Patient Tobacco Use Status Current everyday Tobacco 02/20/25 11:38 e-Cigarette/Vaping Use Never Used 02/20/25 11:38 Thrive Assessment: Date of Thrive Assessment Date Thrive assessed 01/16/25 02/20/25 11:38 Currently or been in a relationship where the following occur: No concerns reported Office Procedures EKG 19846-[id number], Complete Coding Level of Care Code Est Pt Level 5 (56501) Complex EM visit Add On G2211 Diagnoses 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 Esophageal carcinoma C15.9 Tobacco dependence F17.200 BPH associated with nocturia N40.1; R35.1 Coronary artery disease involving [place] coronary artery of [place] heart without angina pectoris I25.10 Associated angina: without angina Coronary Disease-Associated Artery/Lesion type: [place] artery [place] vs. transplanted heart: [place] heart PAD (peripheral artery disease) I73.9 Alcohol dependence with unspecified alcohol-induced disorder F10.29 Substance use status: unspecified alcohol-induced disorder Polyneuritis G62.9 PAC (premature atrial contraction) I49.1 Primary hypertension I10 Hypertension type: primary hypertension Heart murmur R01.1 CPT Codes EKG - CPT: 16956-[id number], Complete ([id number]) Assessment & Plan Assessment & Plan (1) Cobb esophagus with high grade dysplasia: Code(s): K22.711 - Cobb's esophagus with high grade dysplasia Category: Medical (2) Esophageal carcinoma: Comment: Thoracic Consult Dr Cory Borjas 01/18/25 reviewed FU PRN DX: Intramucosal esophageal adenocarcinoma in situ Repeat EGD 03/2025 Does not require esophagectomy chemo immunotherapy or radiation @ this time Code(s): C15.9 - Malignant neoplasm of esophagus, unspecified Category: Medical (3) Tobacco dependence: Comment: 20 year pack hx Code(s): F17.200 - Nicotine dependence, unspecified, uncomplicated Category: Medical (4) BPH associated with nocturia: Code(s): N40.1 - Benign prostatic hyperplasia with lower urinary tract symptoms; R35.1 - Nocturia Category: Medical (5) CAD (coronary artery disease): Code(s): I25.10 - Atherosclerotic heart disease of [place] coronary artery without angina pectoris Category: Medical Qualifiers: Associated angina: without angina Coronary Disease-Associated Artery/Lesion type: [place] artery [place] vs. transplanted heart: [place] heart Qualified Code(s): I25.10 - Atherosclerotic heart disease of [place] coronary artery without angina pectoris (6) PAD (peripheral artery disease): Code(s): I73.9 - Peripheral vascular disease, unspecified Category: Medical (7) Alcohol dependence: Code(s): F10.20 - Alcohol dependence, uncomplicated Category: Medical Qualifiers: Substance use status: unspecified alcohol-induced disorder Qualified Code(s): F10.29 - Alcohol dependence with unspecified alcohol-induced disorder (8) Polyneuritis: Code(s): G62.9 - Polyneuropathy, unspecified Category: Medical (9) PAC (premature atrial contraction): Code(s): I49.1 - Atrial premature depolarization Category: Medical (10) HTN (hypertension): Code(s): I10 - Essential (primary) hypertension Category: Medical Qualifiers: Hypertension type: primary hypertension Qualified Code(s): I10 - Essential (primary) hypertension (11) Heart murmur: Code(s): R01.1 - Cardiac murmur, unspecified Category: Medical Plan , Orders: Orders Comprehensive Met. Panel 04/15/25 G62.9 - Polyneuropathy, unspecified, I10 - Essential (primary) hypertension, I25.10 - Atherosclerotic heart disease of [place] coronary artery without angina pectoris, I73.9 - Peripheral vascular disease, unspecified Vitamin B12 and Folate 04/15/25 G62.9 - Polyneuropathy, unspecified, I10 - Essential (primary) hypertension, I25.10 - Atherosclerotic heart disease of [place] coronary artery without angina pectoris, I73.9 - Peripheral vascular disease, unspecified Ferritin 04/15/25 G62.9 - Polyneuropathy, unspecified, I10 - Essential (primary) hypertension, I25.10 - Atherosclerotic heart disease of [place] coronary artery without angina pectoris, I73.9 - Peripheral vascular disease, unspecified Complete Blood Count no Diff 04/15/25 G62.9 - Polyneuropathy, unspecified, I10 - Essential (primary) hypertension, I25.10 - Atherosclerotic heart disease of [place] coronary artery without angina pectoris, I73.9 - Peripheral vascular disease, unspecified Lipid Panel 04/15/25 G62.9 - Polyneuropathy, unspecified, I10 - Essential (primary) hypertension, I25.10 - Atherosclerotic heart disease of [place] coronary artery without angina pectoris, I73.9 - Peripheral vascular disease, unspecified IRON PROFILE 04/15/25 G62.9 - Polyneuropathy, unspecified, I10 - Essential (primary) hypertension, I25.10 - Atherosclerotic heart disease of [place] coronary artery without angina pectoris, I73.9 - Peripheral vascular disease, unspecified Referrals Lung Cancer Screening Referral F17.200 - Nicotine dependence, unspecified, uncomplicated Medications: New tamsulosin (Flomax) 0.4 mg PO DAILY 90 caps 1RF atorvastatin (Lipitor) 40 mg PO BEDTIME 90 tabs 2RF Refilled hydrochlorothiazide 25 mg PO QAM 90 tabs 0RF
[2025-02-20 11:35] VITALS: BP 102/64; PULSE 107; RESP 14; TEMP 37.5; O2SAT 98; BMI 26.7
[2025-02-20 12:00] VITALS: TEMP 36.8
== END 2025-02-20 12:15 | disposition home or self-care (01) ==
LOC: HO.HMCFM 11:25
PROVIDERS: PCP Nurse Practitioner Family; Visit Provider Nurse Practitioner Family
DX: C15.9 Malignant neoplasm of esophagus, unspecified (principal); F17.200 Nicotine dependence, unspecified, uncomplicated; F10.29 Alcohol dependence with unspecified alcohol-induced disorder; N40.1 Benign prostatic hyperplasia with lower urinary tract symptoms; R35.1 Nocturia; I25.10 Atherosclerotic heart disease of native coronary artery without angina pectoris; I73.9 Peripheral vascular disease, unspecified; G62.9 Polyneuropathy, unspecified; I49.1 Atrial premature depolarization; I10 Essential (primary) hypertension; R01.1 Cardiac murmur, unspecified

== ENCOUNTER → 2025-02-20 11:24 | Outpatient (BNVA) | payer OTHER, SELFPAY | PROVIDERS: PCP Nurse Practitioner Family; Visit Provider Nurse Practitioner Family | DX: K22.711 Barrett's esophagus with high grade dysplasia (principal); C15.9 Malignant neoplasm of esophagus, unspecified; I25.10 Atherosclerotic heart disease of native coronary artery without angina pectoris; I73.9 Peripheral vascular disease, unspecified; F10.29 Alcohol dependence with unspecified alcohol-induced disorder; G62.9 Polyneuropathy, unspecified; I49.1 Atrial premature depolarization; I10 Essential (primary) hypertension; R01.1 Cardiac murmur, unspecified; F17.210 Nicotine dependence, cigarettes, uncomplicated | CPT/HCPCS: 93005 ==

== ENCOUNTER 2025-04-04 11:25 | Outpatient (REF) | payer OTHER, SELFPAY ==
[2025-04-04 14:36] LABS: Hematocrit 31.7 % (42.0-52.0); Hemoglobin 9.6 g/dl (14.0-18.0); Mean Corpuscular HGB Conc 30.3 g/dl (31.0-36.0); Mean Corpuscular Hemoglobin 25.4 pg (27.0-33.0); Mean Corpuscular Volume 83.9 fL (80.0-98.0); NRBC Abs Auto 0.000 X10*3/uL (0.0-0.012); NRBC Pct Auto 0.0 /100WBC (0.0-0.2); Platelet Count 747 X10*3/uL (160-400); Red Blood Count 3.78 X10*6/uL (4.60-5.80); White Blood Count 17.8 X10*3/uL (4.8-10.8)
[2025-04-04 15:10] LABS: Alanine Aminotransferase 24 U/L (0-40); Albumin Level 3.2 g/dL (3.5-5.0); Alkaline Phosphatase 172 U/L (39-117); Anion Gap 13 (12-20); Aspartate Amino Transferase 37 U/L (5-37); Blood Urea Nitrogen 13 mg/dL (9-16); Calcium 8.6 mg/dL (8.4-10.2); Carbon Dioxide 23 mmol/L (22-29); Chloride 109 mmol/L (96-108); Cholesterol 149 mg/dL (<200); Estimated Glomerular Filt Rate 53; HDL Cholesterol 33 mg/dL (>40); Iron 28 mcg/dL (45-160); Percent Iron Saturation 10 % (15-50); Potassium 4.3 mmol/L (3.3-5.1); Sodium 141 mmol/L (135-145); Total Iron Binding Capacity 277 mcg/dL (228-428); Total Protein 7.0 g/dL (6.5-8.0); Triglycerides 133 mg/dL (<150); Unsaturated Iron Binding 249 ug/dL
[2025-04-04 15:24] LABS: Ferritin 46 ng/mL (20-250)
[2025-04-04 15:39] LABS: Folate > 20.0 ng/mL (> or = 4.0); Vitamin B12 526 pg/mL (200-900)
[2025-04-04 17:41] LABS: Appearance Urine Turbid; Glucose Urine UA Negative (Negative); PH 6.0 (5.0-9.0); Specific Gravity - Urine 1.015 (1.005-1.025); UMIC TRIGGER UACC YES
[2025-04-04 17:52] LABS: UACC Culture Trigger YES
== END 2025-04-04 11:26 | disposition home or self-care (01) ==
LOC: HO.WFDLDS 11:25
PROVIDERS: PCP Nurse Practitioner Family; Visit Provider Nurse Practitioner Family
DX: Z09 Encounter for follow-up examination after completed treatment for conditions other than malignant neoplasm (principal); R30.0 Dysuria; I10 Essential (primary) hypertension; I25.10 Atherosclerotic heart disease of native coronary artery without angina pectoris; I73.9 Peripheral vascular disease, unspecified; G62.9 Polyneuropathy, unspecified; K22.711 Barrett's esophagus with high grade dysplasia; D64.9 Anemia, unspecified; I95.1 Orthostatic hypotension; F10.29 Alcohol dependence with unspecified alcohol-induced disorder; Z87.448 Personal history of other diseases of urinary system; Z86.19 Personal history of other infectious and parasitic diseases
CPT/HCPCS: 36415; 80053; 80061; 81001; 82607; 82728; 82746; 83540; 85027; 87086; 87088; 87186

== ENCOUNTER 2025-04-04 11:25 | Outpatient (AMB) | payer OTHER, SELFPAY ==
--- NOTE | 2025-04-04 11:27 | A.OFFPC_ITS ---
Vital Signs 3 04/04/25 11:31 04/04/25 11:59 04/04/25 11:59 Height 6 ft Weight 201 lb BMI 27.3 BP 90/62 80/40 L Blood Pressure Location Lt brachial Lt brachial Position Sitting Respiration 12 Pulse 113 H 114 H Pulse Source Pulse Oximeter Temp 97.2 F Temp Source Oral Pulse Oximetry (%) 96 Oxygen Delivery Method Simple Mask Intake Visit Reasons: D/C on from [facility]. Intake Note: D/C follow up from [facility] [employer] Required: No Allergies No Known Allergies Allergy (Verified 04/04/25 11:28) Medication List - Last Reconciled 04/04/25 by Kenzie Orozco, BUSINESS EXCELLENCE MANAGER- aspirin 81 mg PO DAILY atorvastatin (Lipitor) 40 mg PO BEDTIME diltiazem HCl ER 180 mg PO DAILY pantoprazole 40 mg PO BID tamsulosin (Flomax) 0.4 mg PO DAILY Tobacco use date assessed: 04/04/25 Dental Screening Dental Screen Date: 04/04/25 Did you have a dental visit in the last 12 months?: Yes Did you have a dental problem in the last 6 months where you did not have access to dental care?: No Was dental information given to patient?: Patient has dentist HPI HPI Comments 2 History of Present Illness0 Details 59 y/o M with esophageal carcinoma (01/01 25), polyneuritis, etoh dependence, HTN, erosive gastritis, Cobb's Esophagous, subacute nondisplaced posterior L 3,6,7,8 subacute rib fractures (12/2024) Severe CAD, 3 mm RUL nodule, severe PAD with calcified plaques and critical stenosis of R superficial femoral artery and L common femoral and L superficial artery, chronic anemia, hx of GIB , tubular adenoma of colon, duodenal ulcer admitted for etoh withdrawl 12/24- 12/26/24, drinking 10-12 nips per day; treated w/ phenobarb and CIWA protocol. Returned for scheduled EGD and had complications of IV infilatrate requiring re- admit for monitoring 12/27-12/28/24. social: lives w/ sig other, Brenda. 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 tubular adenoma Tdap declined Lung Ca Screening - enrolled @ [facility] 01/2025 but wants to stay at [facility], new referral placed today. Specialist GI Dr Rueda Thoracic surgery Onco Dr Kamar Logan Here today for a Transitional Care Management Visit Discharge summary reviewed. Admission Date: 03/19/2025 Discharge Date: 03/25/2025 Hospital: [facility] Date of interactive contact with Nurse Navigator: as documented in chart Medications reconciled & updated. During todays TCM visit, the d/c summary was reviewed, along with the need for or follow-up on pending diagnostic tests and treatments, as necessary interaction with other health resident care aide who will assume or reassume care of the beneficiary?s system-specific problems was done or is being worked on, education was provided to the beneficiary, family, guardian, and/or caregiver, referrals to establish or re-establish and arrange needed community resources we completed, assistance in scheduling required follow-up with community providers and services & finally updated medication list given to patient/caregiver. He presents today stating that he feels okay. His biggest complaint is that of feeling dizzy. His hydrochlorothiazide was discontinued while he was admitted & his losartan was decreased along with his diltiazem. He reports that he is taking these medications as directed but he is not monitoring his blood pressure at home. The dizziness is fleeting and not associated with syncope. He does continue to drink although he is working very hard to reduce. His last drink was on Tuesday. He is at risk of a separation from his significant other, Brenda, if he continues to drink. He is out on leave from work with a goal of returning at the end of May ; his spouse feels that his alcohol consumption is getting in the way of this. He would like medications to help reduce his drinking. Offered and declined a referral to addiction Medicine. He completed his IV AB and is taking carafate as directed. He denies any fever, chills, chest pain, nausea, vomiting. He has a history of BPH. He reports that his urine stream was decreased prior to his admission and is now back to normal. Offered and declined a urology referral. Review of Systems - Gastrointestinal: Reports adequate man agement of GERD with pantoprazole. - Genitourinary: Reports urinary frequen cy; denies hematuria or dysuria. - Neurological: Reports neuropathy in up per and lower extremities. - Hematological: Denies excessive bleedi ng or bruising. - Psychiatric: Denies anxiety or depress ion. Physical Exam General: Well developed, well nourished, in no acute distress. Appears older than age. Head: Normocephalic, atraumatic. Eyes: Pupils are equal, round and reactive to light and accommodation. Conjunctivae are clear. Lungs: Clear to auscultation bilaterally. No rales, rhonchi or wheeze noted. Good air flow in all nielsen. Heart: Tachycardic, regular rhythm, 2/6 murmurs, No click, rubs or gallops are noted. Musculoskeletal: Joints are nontender, without swelling, redness, or effusions. Pulses: Weak pulses noted in the lower extremities, hairless, skin intact, abnormal sensations bilat Extremities: No clubbing, cyanosis nor edema is noted. Psych: Mood and affect appropriate. Plan His blood pressure is low today. Discontinue losartan. Continue diltiazem 120 mg as he is tachycardic. Monitor blood pressure at home. Check labs today include a urine. Continue all other medications as prescribed. Add naltrexone 50 mg to help with alcohol cessation. Return to the office as scheduled in the sooner as needed. Total time spent caring for the patient today was 50 minutes. This includes time spent before the visit reviewing the chart, time spent during the visit, and time spent after the visit on documentation, reviewing laboratory results, diagnostic imaging, medications, performing a medically necessary evaluation, counseling on diagnoses, care coordination, ordering appropriate tests, ordering appropriate medications, review of tests performed by other providers, reporting test results with the patient, communication with other healthcare providers. [facility] Medical History (Updated 04/04/25 @ 12:15 by RANDI Gonzalez-AUGUSTIN) No pertinent family history No pertinent past medical history Surgical History (Updated 01/16/25 @ 10:12 by BAILIO Gonzalez) History of colonoscopy (~11/2024) No pertinent past surgical history Social History (Updated 01/16/25 @ 09:55 by Jeovany Bliss MA) Household Members: Significant Other and Family Both parents involved: No Caregiver staying overnight: No Housing: House Are you a primary dog daycare provider to a significant other at home: No Do you presently have visiting nurse or other home services: No 75 years or older and lives alone: No Patient Tobacco Use Status: Current everyday Tobacco user Cigarettes Per Day: 10 Years Smoked: 40 Packs per year/per ci.00 e-Cigarette/Vaping Use: Never Used Second Hand Smoke Exposure: No service: No Current occupational status: employed 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 Cognitive needs: No Hearing needs: No Vision needs: No Questionnaire Thrive Questionnaire Date Thrive assessed: 01/16/25 I am a: Patient What is your living situation today?: I have a steady place to live Within the past 12 months, did the food you bought not last and you didn't have the money to get more?: Never true Within the past 12 months, did you worry whether your food would run out before you got money to buy more?: Never true Do you have trouble paying for medicines?: No Do you have trouble getting transportation to medical appointments?: No Do you have trouble paying your heating and electricity bill?: No Do you have trouble taking care of your child, family member or friend?: No Do you have trouble with day-to-day activities such as bathing, preparing meals, shopping, managing finances, etc.?: No Are you currently unemployed and looking for a job?: No Are you interested in more education?: No Please select the resources that you would like help with: None Currently or been in a relationship where the following occur: No concerns reported THRIVE Score: 0 CURLY-7 AMB Questionnaire CURLY-7 Date CURLY - 7 assessed: 01/16/25 Source: Developed by Drs. Kenny Lau, Ebony Florence, Emiliano Huber and colleagues, with an educational elissa from [employer]. Physical exam (Primary Care) Vital Signs: Last Vital Signs Temp 97.2 F 04/04/25 11:31 Pulse 113 H 04/04/25 11:31 Resp 12 04/04/25 11:31 BP 90/62 04/04/25 11:31 Pulse Ox 96 04/04/25 11:31 Oxygen Delivery Method Simple Mask 04/04/25 11:31 BMI result Body Mass Index 27.3 Tobacco/Smoking Status: Tobacco use Status Tobacco use date assessed 04/04/25 04/04/25 11:33 Patient Tobacco Use Status Current everyday Tobacco 04/04/25 11:33 e-Cigarette/Vaping Use Never Used 04/04/25 11:33 Thrive Assessment: Date of Thrive Assessment Date Thrive assessed 01/16/25 04/04/25 11:33 Currently or been in a relationship where the following occur: No concerns reported Results Reviewed Results Reviewed: Coding Level of Care Code TCM High MDM <= 7 Days Complex EM visit Add On G2211 Diagnoses Hospital discharge follow-up Z09 Alcohol dependence with unspecified alcohol-induced disorder F10.29 Substance use status: unspecified alcohol-induced disorder History of Escherichia coli septicemia Z86.19 History of pyelonephritis Z87.448 Orthostatic hypotension I95.1 Anemia, unspecified type D64.9 Anemia type: unspecified type 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 Assessment & Plan Assessment & Plan (1) Hospital discharge follow-up: Code(s): Z09 - Encounter for follow-up examination after completed treatment for conditions other than malignant neoplasm (2) Alcohol dependence: Code(s): F10.20 - Alcohol dependence, uncomplicated Category: Medical Qualifiers: Substance use status: unspecified alcohol-induced disorder Qualified Code(s): F10.29 - Alcohol dependence with unspecified alcohol-induced disorder (3) History of Escherichia coli septicemia: Onset Date: ~03/2025 Code(s): Z86.19 - Personal history of other infectious and parasitic diseases Category: Medical (4) History of pyelonephritis: Onset Date: ~03/2025 Code(s): Z87.448 - Personal history of other diseases of urinary system Category: Medical (5) Orthostatic hypotension: Code(s): I95.1 - Orthostatic hypotension Category: Medical (6) Anemia: Code(s): D64.9 - Anemia, unspecified Category: Medical Qualifiers: Anemia type: unspecified type Qualified Code(s): D64.9 - Anemia, unspecified (7) Cobb esophagus with high grade dysplasia: Code(s): K22.711 - Cobb's esophagus with high grade dysplasia Category: Medical Plan . Orders: Orders 2 UA CC w/rflx Micro + Cult Today R30.0 - Dysuria Medications: New 2 pyridoxine (vitamin B6) 50 mg PO DAILY 90 tabs 0RF thiamine HCl (vitamin B1) 100 mg PO DAILY 90 tabs 0RF diltiazem HCl CD (Cardizem CD) 120 mg PO QAM 90 caps 0RF naltrexone 50 mg PO DAILY 90 tabs 0RF folic acid 1 mg PO DAILY 90 tabs 2RF Changed 2 From pantoprazole 40 mg PO BID 90 tabs 0RF To pantoprazole bid for 8 weeks then QD (starting mid May) 40 mg PO BID 90 tabs 0RF Discontinued 2 hydrochlorothiazide Discontinued Reason: Doctor's Order 25 mg PO QAM 90 tabs 0RF Patient Instructions: - Labs and urine today - your blood pressure is low. Discontinue losartan Start naltrexone to aid in alcohol cessation, remember this can make you nauseous Be sure that you are taking your atorvastatin along with the other medications prescribed to you at the time of discharge Return to the office as scheduled on the
[2025-04-04 11:31] VITALS: BP 90/62; PULSE 113; RESP 12; TEMP 36.2; O2SAT 96; BMI 27.3
[2025-04-04 11:59] VITALS: BP 80/40; PULSE 114
== END 2025-04-04 12:03 | disposition home or self-care (01) ==
LOC: HO.HMCFM 11:26
PROVIDERS: PCP Nurse Practitioner Family; Visit Provider Nurse Practitioner Family
DX: K22.711 Barrett's esophagus with high grade dysplasia (principal); F10.29 Alcohol dependence with unspecified alcohol-induced disorder; I95.1 Orthostatic hypotension; D64.9 Anemia, unspecified; Z09 Encounter for follow-up examination after completed treatment for conditions other than malignant neoplasm; Z86.19 Personal history of other infectious and parasitic diseases; Z87.448 Personal history of other diseases of urinary system

== ENCOUNTER 2025-04-16 10:58 | Outpatient (REF) | payer OTHER, SELFPAY ==
[2025-04-16 14:19] LABS: Appearance Urine Cloudy; Glucose Urine UA Negative (Negative); PH 5.5 (5.0-9.0); Specific Gravity - Urine 1.015 (1.005-1.025); UMIC TRIGGER UACC YES
[2025-04-16 21:02] LABS: UACC Culture Trigger YES
== END 2025-04-16 10:59 | disposition home or self-care (01) ==
LOC: HO.WFDLDS 10:58
PROVIDERS: Visit Provider Nurse Practitioner Family
DX: R30.0 Dysuria (principal); N39.0 Urinary tract infection, site not specified
CPT/HCPCS: 81001; 87086

== ENCOUNTER 2025-05-03 09:54 | Outpatient (AMB) | payer OTHER, SELFPAY ==
--- NOTE | 2025-05-03 09:58 | A.OFFPC_ITS ---
Vital Signs 05/03/25 10:01 Height 6 ft Weight 201 lb 2 oz BMI 27.3 BP 100/68 Blood Pressure Location Lt brachial Position Sitting Respiration 12 Pulse 119 H Pulse Source Pulse Oximeter Temp 97.7 F Temp Source Temporal Artery Scan Pulse Oximetry (%) 98 Oxygen Delivery Method Room Air Intake Visit Reasons: Apr 30 min routien fu labs 1 week before Intake Note: Cory presents in the office today for a follow up. Patient refused flu shot. Allergies No Known Allergies Allergy (Verified 05/03/25 10:12) Medication List - Last Reconciled 05/03/25 by Kenzie Orozco, SOCK BOARD[employer]- aspirin 81 mg PO DAILY atorvastatin (Lipitor) 40 mg PO BEDTIME diltiazem HCl CD (Cardizem CD) 120 mg PO QAM folic acid 1 mg PO DAILY naltrexone 50 mg PO DAILY pantoprazole 40 mg PO BID pyridoxine (vitamin B6) 50 mg PO DAILY tamsulosin (Flomax) 0.4 mg PO DAILY thiamine HCl (vitamin B1) 100 mg PO DAILY Tobacco use date assessed: 05/03/25 Dental Screening Dental Screen Date: 05/03/25 Did you have a dental visit in the last 12 months?: No Did you have a dental problem in the last 6 months where you did not have access to dental care?: No Was dental information given to patient?: Patient declined HPI HPI Comments History of Present Illness Details 59 y/o M with esophageal carcinoma (01/01 25), polyneuritis, etoh dependence, HTN, erosive gastritis, Cobb's Esophagous, subacute nondisplaced posterior L 3,6,7,8 subacute rib fractures (12/2024) Severe CAD, 3 mm RUL nodule, severe PAD with calcified plaques and critical stenosis of R superficial femoral artery and L common femoral and L superficial artery, chronic anemia, hx of GIB , tubular adenoma of colon, duodenal ulcer admitted for etoh withdrawl 12/24- 12/26/24, drinking 10-12 nips per day; treated w/ phenobarb and CIWA protocol. Returned for scheduled EGD and had complications of IV infilatrate requiring re- admit for monitoring 12/27-12/28/24. social: lives w/ sig other, Brenda. 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 Specialist GI Dr Rueda Thoracic surgery Onco Dr Kamar Logan History of Present Illness The patient is a 59-year-old male presenting with follow-up for dizziness and medication management. Dizziness: - Notable improvement after discontinuat ion of losartan. - Episodic, associated with standing rosina ckly. - Denies palpitations or heart racing. Alcohol Use Disorder: - On naltrexone; drinks significantly le ss, about once a week. Hypotension: - Stopped losartan; on diltiazem. - Blood pressure stable; heart rate slig htly elevated. - Plan to adjust dosage to address heart rate. Urinary Tract Infection: - Completed antibiotic treatment. - No current symptoms. - Cleared by recent urine tests. Barretts - taking PPI BID RTW date 06/07/25 Review of Systems - Cardiovascular: Denies palpitations or racing heart. - Gastrointestinal: Denies nausea, vomit ing. - Genitourinary: Denies current urinary symptoms. - Neurological: Reports dizziness, notab ly reduced. Physical Exam General: Well developed, well nourished, in no acute distress. Appears older than age. Head: Normocephalic, atraumatic. Eyes: Pupils are equal, round and reactive to light and accommodation. Conjunctivae are clear. Lungs: Clear to auscultation bilaterally. No rales, rhonchi or wheeze noted. Good air flow in all nielsen. Heart: Tachycardic, regular rhythm, 2/6 murmurs, No click, rubs or gallops are noted. Musculoskeletal: Joints are nontender, without swelling, redness, or effusions. Pulses: Weak pulses noted in the lower extremities, hairless, skin intact, abnormal sensations bilat Extremities: No clubbing, cyanosis nor edema is noted. Psych: Mood and affect appropriate. Discussion Notes I discussed with the patient the progress made with dizziness since the discontinuation of losartan and pondered the elevated heart rate. We examined the effectiveness of naltrexone for the management of alcohol use disorder, commending the reduction in drinking frequency. I deliberated options for optimally managing his heart rate, suggesting consideration to adjusting the diltiazem dosage. There is an emphasis on stabilizing his heart rate to prevent hospital readmission and facilitate returning to work. We discussed setting upcoming appointments around his birthday to ensure ongoing monitoring before concluding his leave. I instructed follow-up labs to be completed. Patient was given time to ask questions. All questions were answered to their satisfaction. Assessment and Plan 1. Dizziness - Suspected orthostatic issue; adjust po sitions slowly. - improved w/ DC of losartan. 2. Alcohol Use Disorder - Maintain naltrexone dosage. - Promote further reduction in alcohol u se. 3. Tachycaria - Adjust diltiazem to 180 mg. using his 120mg CD QD and adding 12 hr 60mg BID (as he has 5 bottles at home of the 120 CD that he doesnt want to get rid of) - Monitor heart rate closely. 4. Urinary Tract Infection - Recent infection cleared; watch for sy mptoms. - Repeat urine at next visit. Check labs before next visit. Declined flu shot. Patient Instructions - Please change your position slowly to help manage dizziness. - Continue to reduce alcohol intake; aim to stop completely. - Take diltiazem as directed at an incre ased dose. - Watch for any urinary symptoms and ananth l if they recur. - Follow up with me before returning to work, around your birthday. Consent Patient was informed and verbally consented to the use of an ambient scribe for clinic note documentation during this visit. Total time spent caring for the patient today was 30 minutes. This includes time spent before the visit reviewing the chart, time spent during the visit, and time spent after the visit on documentation, reviewing laboratory results, diagnostic imaging, medications, performing a medically necessary evaluation, counseling on diagnoses, care coordination, ordering appropriate tests, ordering appropriate medications, review of tests performed by other providers, reporting test results with the patient, communication with other healthcare providers. [facility] Medical History (Updated 05/03/25 @ 10:34 by RANDI Gonzalez-AUGUSTIN) No pertinent family history No pertinent past medical history Surgical History (Updated 01/16/25 @ 10:12 by RANDI Gonzalez-AUGUSTIN) History of colonoscopy (~11/2024) No pertinent past surgical history Social History (Updated 05/03/25 @ 10:01 by Bela Rico [facility]) Household Members: Significant Other and Family Both parents involved: No Caregiver staying overnight: No Housing: House Are you a primary grounds caretaker to a significant other at home: No Do you presently have visiting nurse or other home services: No 75 years or older and lives alone: No Alcohol intake: current Patient Tobacco Use Status: Current everyday Tobacco user Cigarettes Per Day: 10 Years Smoked: 40 e-Cigarette/Vaping Use: Never Used Second Hand Smoke Exposure: No service: No Current occupational status: employed 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 Cognitive needs: No Hearing needs: No Vision needs: No Questionnaire Thrive Questionnaire Date Thrive assessed: 01/16/25 I am a: Patient What is your living situation today?: I have a steady place to live Within the past 12 months, did the food you bought not last and you didn't have the money to get more?: Never true Within the past 12 months, did you worry whether your food would run out before you got money to buy more?: Never true Do you have trouble paying for medicines?: No Do you have trouble getting transportation to medical appointments?: No Do you have trouble paying your heating and electricity bill?: No Do you have trouble taking care of your child, family member or friend?: No Do you have trouble with day-to-day activities such as bathing, preparing meals, shopping, managing finances, etc.?: No Are you currently unemployed and looking for a job?: No Are you interested in more education?: No Please select the resources that you would like help with: None Currently or been in a relationship where the following occur: No concerns reported THRIVE Score: 0 CURLY-7 AMB Questionnaire CURLY-7 Date CURLY - 7 assessed: 01/16/25 Source: Developed by Drs. Kenny Lau, Ebony Florence, Emiliano Huber and colleagues, with an educational elissa from [employer]. Physical exam (Primary Care) Vital Signs: Last Vital Signs Temp 97.7 F 05/03/25 10:01 Pulse 119 H 05/03/25 10:01 Resp 12 05/03/25 10:01 BP 100/68 05/03/25 10:01 Pulse Ox 98 05/03/25 10:01 Oxygen Delivery Method Room Air 05/03/25 10:01 BMI result Body Mass Index 27.3 Tobacco/Smoking Status: Tobacco use Status Tobacco use date assessed 05/03/25 05/03/25 10:04 Patient Tobacco Use Status Current everyday Tobacco 05/03/25 10:04 e-Cigarette/Vaping Use Never Used 05/03/25 10:04 Tobacco cessation counseling provided: Yes Items discussed: Nicotine replacement, QuitWorks and Other Relapse Prevention: discussed the importance of a supportive environment, discussed extending NRT, discussed negative mood or depression after quitting, weight gain after smoking is common and discussed dietary, exercise and/or lifestyle changes Number of minutes spent counselin CPT code: 95740 - 4-10 Minutes Thrive Assessment: Date of Thrive Assessment Date Thrive assessed 01/16/25 05/03/25 10:04 Currently or been in a relationship where the following occur: No concerns reported Coding Level of Care Code Est Pt Level 4 (64515) Complex EM visit Add On G2211 Diagnoses Coronary artery disease involving [place] coronary artery of [place] heart without angina pectoris I25.10 Coronary Disease-Associated Artery/Lesion type: [place] artery [place] vs. 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 transplanted heart: [place] heart Associated angina: without angina Qualified Code(s): I25.10 - Atherosclerotic heart disease of [place] coronary artery without angina pectoris (2) HTN (hypertension): Code(s): I10 - Essential (primary) hypertension Category: Medical Qualifiers: Hypertension type: primary hypertension Qualified Code(s): I10 - Essential (primary) hypertension (3) Influenza vaccination declined: Code(s): Z28.21 - Immunization not carried out because of patient refusal Category: Medical (4) Alcohol dependence: Code(s): F10.20 - Alcohol dependence, uncomplicated Category: Medical Qualifiers: Substance use status: unspecified alcohol-induced disorder Qualified Code(s): F10.29 - Alcohol dependence with unspecified alcohol-induced disorder (5) Orthostatic hypotension: Code(s): I95.1 - Orthostatic hypotension Category: Medical (6) Heart murmur: Code(s): R01.1 - Cardiac murmur, unspecified Category: Medical (7) PAC (premature atrial contraction): Code(s): I49.1 - Atrial premature depolarization Category: Medical (8) Cobb esophagus with high grade dysplasia: Code(s): K22.711 - Cobb's esophagus with high grade dysplasia Category: Medical (9) UTI (urinary tract infection): Code(s): N39.0 - Urinary tract infection, site not specified Category: Medical (10) Tobacco dependence: Comment: 20 year pack hx Code(s): F17.200 - Nicotine dependence, unspecified, uncomplicated Category: Medical (11) Immunization counseling: Code(s): Z71.85 - Encounter for immunization safety counseling Category: Medical Plan . Orders: Orders UA CC w/rflx Micro + Cult Today I10 - Essential (primary) hypertension, I25.10 - Atherosclerotic heart disease of [place] coronary artery without angina pectoris, R30.0 - Dysuria Complete Blood Count no Diff Today I10 - Essential (primary) hypertension, I25.10 - Atherosclerotic heart disease of [place] coronary artery without angina pectoris Comprehensive Met. Panel Today I10 - Essential (primary) hypertension, I25.10 - Atherosclerotic heart disease of [place] coronary artery without angina pectoris Medications: New diltiazem HCl ER 60 mg PO BID 60 caps 1RF
[2025-05-03 10:01] VITALS: BP 100/68; PULSE 119; RESP 12; TEMP 36.5; O2SAT 98; BMI 27.3
== END 2025-05-03 10:30 | disposition home or self-care (01) ==
LOC: HO.HMCFM 09:55
PROVIDERS: PCP Nurse Practitioner Family; Visit Provider Nurse Practitioner Family
DX: I25.10 Atherosclerotic heart disease of native coronary artery without angina pectoris (principal); I10 Essential (primary) hypertension; Z28.21 Immunization not carried out because of patient refusal; F10.29 Alcohol dependence with unspecified alcohol-induced disorder; I95.1 Orthostatic hypotension; R01.1 Cardiac murmur, unspecified; I49.1 Atrial premature depolarization; K22.711 Barrett's esophagus with high grade dysplasia; N39.0 Urinary tract infection, site not specified; F17.200 Nicotine dependence, unspecified, uncomplicated; Z71.85 Encounter for immunization safety counseling

== ENCOUNTER 2025-05-30 13:13 | Outpatient (REF) | payer OTHER, SELFPAY ==
[2025-05-30 17:46] LABS: Hematocrit 33.6 % (42.0-52.0); Hemoglobin 10.0 g/dl (14.0-18.0); Mean Corpuscular HGB Conc 29.8 g/dl (31.0-36.0); Mean Corpuscular Hemoglobin 25.0 pg (27.0-33.0); Mean Corpuscular Volume 84.0 fL (80.0-98.0); NRBC Abs Auto 0.000 X10*3/uL (0.0-0.012); NRBC Pct Auto 0.0 /100WBC (0.0-0.2); Platelet Count 604 X10*3/uL (160-400); Red Blood Count 4.00 X10*6/uL (4.60-5.80); White Blood Count 13.6 X10*3/uL (4.8-10.8)
[2025-05-30 17:52] LABS: Appearance Urine Clear; Glucose Urine UA Negative (Negative); PH 6.0 (5.0-9.0); Specific Gravity - Urine 1.020 (1.005-1.025); UMIC TRIGGER UACC YES
[2025-05-30 17:56] LABS: Alanine Aminotransferase 13 U/L (0-40); Albumin Level 3.7 g/dL (3.5-5.0); Alkaline Phosphatase 109 U/L (39-117); Anion Gap 12 (12-20); Aspartate Amino Transferase 29 U/L (5-37); Blood Urea Nitrogen 12 mg/dL (9-16); Calcium 9.2 mg/dL (8.4-10.2); Carbon Dioxide 25 mmol/L (22-29); Chloride 107 mmol/L (96-108); Estimated Glomerular Filt Rate > 60; Potassium 4.3 mmol/L (3.3-5.1); Sodium 140 mmol/L (135-145); Total Protein 7.0 g/dL (6.5-8.0)
== END 2025-05-30 13:14 | disposition home or self-care (01) ==
LOC: HO.WFDLDS 13:13
PROVIDERS: Visit Provider Nurse Practitioner Family
DX: I25.10 Atherosclerotic heart disease of native coronary artery without angina pectoris (principal); I10 Essential (primary) hypertension
CPT/HCPCS: 36415; 80053; 81001; 85027

== ENCOUNTER 2025-06-05 10:25 | Outpatient (AMB) | payer OTHER, SELFPAY ==
--- NOTE | 2025-06-05 10:29 | MHC.PC.OV ---
Vital Signs 06/05/25 10:34 Height 6 ft Weight 217 lb 4 oz BMI 29.5 BP 120/78 Blood Pressure Location Lt brachial Position Sitting Respiration 12 Pulse 98 Pulse Source Pulse Oximeter Temp 97.7 F Temp Source Temporal Artery Scan Pulse Oximetry (%) 97 Oxygen Delivery Method Room Air Intake Visit Reasons: 06/05/25 30 min labs 1 week before, close fu retur Intake Note: Cory presents in the office today for lab review, etc. Review going back to work. Needs refills of Diltiazem and Multi Vitamin/Minerals. Allergies No Known Allergies Allergy (Verified 06/05/25 11:05) Medication List - Last Reconciled 06/05/25 by Kenzie Orozco, DIGITAL COMPUTER OPERATOR-BC aspirin 81 mg PO DAILY atorvastatin (Lipitor) 40 mg PO BEDTIME diltiazem HCl ER 60 mg PO BID folic acid 1 mg PO DAILY naltrexone 50 mg PO DAILY pantoprazole TAKE 40 MG ORALLY 2 TIMES A DAY FOR 8 WEEKS THEN QD (STARTING MID MAY) pyridoxine (vitamin B6) 50 mg PO DAILY tamsulosin (Flomax) 0.4 mg PO DAILY thiamine HCl (vitamin B1) 100 mg PO DAILY Tobacco use date assessed: 06/05/25 Dental Screening Dental Screen Date: 06/05/25 Did you have a dental visit in the last 12 months?: No Did you have a dental problem in the last 6 months where you did not have access to dental care?: No Was dental information given to patient?: Patient declined HPI HPI Comments History of Present Illness Details 60 y/o M with esophageal carcinoma (12/2024), polyneuritis, etoh dependence, HTN, erosive gastritis, Cobb's Esophagous, subacute nondisplaced posterior L 3,6,7,8 subacute rib fractures (12/2024) Severe CAD, 3 mm RUL nodule, severe PAD with calcified plaques and critical stenosis of R superficial femoral artery and L common femoral and L superficial artery, chronic anemia, hx of GIB , tubular adenoma of colon, duodenal ulcer admitted for etoh withdrawl 12/24-12/26/24, drinking 10-12 nips per day; treated w/ phenobarb and CIWA protocol. Returned for scheduled EGD and had complications of IV infilatrate requiring re-admit for monitoring 12/27-12/28/24. social: lives w/ sig other, Brenda. 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 Specialist GI Dr Rueda Thoracic surgery Onco Dr Kamar Logan History of Present Illness The patient is a 60 year old male presenting with peripheral neuropathy symptoms and return to work evaluation. Peripheral Neuropathy: - Reports feet pain with tingling and explosive characteristics. - Occurs intermittently, affects activity and rest. - Vitamins currently used. Hypertension: - On diltiazem 180 mg. - Occasional dizziness on position change has improved greatly. Alcohol Use Disorder: - Naltrexone taken, skipped on alcohol days. - Reduced consumption to weekly. Anemia: - Improved lab results. - Multivitamin with iron continued. Refill needed Atrial Palpitations: - Controlled with diltiazem at current dose Gastroesophageal Reflux Disease (GERD w/ Barretts: - Pantoprazole once daily. Review of Systems - General: Denies fever. - Cardiovascular: Reports decreased palpitations, occasional dizziness with positional changes. - Gastrointestinal: Denies nausea; reports GERD managed with pantoprazole. - Neurological: Reports episodic sharp, tingling pain in feet described as neuropathy. - Psychiatric: Reports reduced alcohol intake to once weekly. - Musculoskeletal: Denies joint pain. - Hematologic: Reports improvement in anemia on current management. Physical Exam General: Well developed, well nourished, in no acute distress.. Head: Normocephalic, atraumatic. Eyes: Pupils are equal, round and reactive to light and accommodation. Conjunctivae are clear. Lungs: Clear to auscultation bilaterally. No rales, rhonchi or wheeze noted. Good air flow in all nielsen. Heart: Regular rate & rhythm, 2/6 murmurs, No click, rubs or gallops are noted. Musculoskeletal: Joints are nontender, without swelling, redness, or effusions. Pulses: Weak pulses noted in the lower extremities, hairless, skin intact, abnormal sensations bilat Extremities: No clubbing, cyanosis nor edema is noted. Psych: Mood and affect appropriate. Results Labs 05/30/25 improving anemia, normal CMP except random glusoe 133, UA trace leuk est (improved) Discussion Notes During the visit, we reviewed the patient's multiple health concerns including peripheral neuropathy, hypertension, and alcohol use. I explained the continued management of peripheral neuropathy as potentially involving [id number] options like Nervive, noting alternatives like prescription medications gabapentin or pregabalin that may cause tiredness. For his hypertension managed with diltiazem 180 mg, I acknowledged improvements in palpitations and heart rate, and suggested continuing the current regimen. Concerning alcohol consumption, the patient continues naltrexone but skips it when drinking, now limited to once a week; I acknowledged the reduction and impact on his relationship. Anemia management with multivitamins has shown improvement. No current symptoms of concern necessitate changes to his GERD medication, pantoprazole. The patient expressed readiness to return to a fully staffed work environment, now on a manageable schedule, and was provided a clearance to return to work. A follow-up in three months was scheduled to reassess his health status and laboratory findings. Patient was given time to ask questions. All questions were answered to their satisfaction. Assessment and Plan 1. Peripheral Neuropathy - Consider Nervive for symptom relief. Etoh reduction, cont B6 and folic acid 2. Hypertension - Maintain diltiazem 180 mg; improve palpitations. 3. Alcohol Use Disorder - Continue naltrexone; weekly intake noted. 4. Anemia - Continue multivitamin with iron due to improvement. 5. Atrial Palpitations - Monitor with diltiazem 180 mg. 6. Gastroesophageal Reflux Disease/Barretts - Continue pantoprazole daily. 7. Return to work; clearance note given return 06/06/25 full duty. Patient Instructions - Consider Nervive for neuropathy pain relief. - Continue taking multivitamin with iron. - Maintain diltiazem regimen as advised. - Use pantoprazole once daily for GERD. - Reduce alcohol intake; skip naltrexone on drinking days. - Return in three months for follow-up w/ repeat labs, sooner PRN Consent Patient was informed and verbally consented to the use of an ambient scribe for clinic note documentation during this visit. Total time spent caring for the patient today was 30 minutes. This includes time spent before the visit reviewing the chart, time spent during the visit, and time spent after the visit on documentation, reviewing laboratory results, diagnostic imaging, medications, performing a medically necessary evaluation, counseling on diagnoses, care coordination, ordering appropriate tests, ordering appropriate medications, review of tests performed by other providers, reporting test results with the patient, communication with other healthcare providers. [facility] Medical History (Updated 06/05/25 @ 11:25 by RANDI Gonzalez-AUGUSTIN) No pertinent family history No pertinent past medical history Surgical History (Updated 01/16/25 @ 10:12 by ABILIO Gonzalez) History of colonoscopy (~11/2024) No pertinent past surgical history Social History (Updated 06/05/25 @ 10:34 by Bela Rico [facility]) Household Members: Significant Other and Family Both parents involved: No Caregiver staying overnight: No Housing: House Are you a primary acute care clinical nurse specialist to a significant other at home: No Do you presently have visiting nurse or other home services: No 75 years or older and lives alone: No Alcohol intake: current Patient Tobacco Use Status: Current everyday Tobacco user Cigarettes Per Day: 10 Years Smoked: 40 e-Cigarette/Vaping Use: Never Used Second Hand Smoke Exposure: No service: No Current occupational status: employed 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 Cognitive needs: No Hearing needs: No Vision needs: No Questionnaire Thrive Questionnaire Date Thrive assessed: 01/16/25 I am a: Patient What is your living situation today?: I have a steady place to live Within the past 12 months, did the food you bought not last and you didn't have the money to get more?: Never true Within the past 12 months, did you worry whether your food would run out before you got money to buy more?: Never true Do you have trouble paying for medicines?: No Do you have trouble getting transportation to medical appointments?: No Do you have trouble paying your heating and electricity bill?: No Do you have trouble taking care of your child, family member or friend?: No Do you have trouble with day-to-day activities such as bathing, preparing meals, shopping, managing finances, etc.?: No Are you currently unemployed and looking for a job?: No Are you interested in more education?: No Please select the resources that you would like help with: None Currently or been in a relationship where the following occur: No concerns reported THRIVE Score: 0 CURLY-7 AMB Questionnaire CURLY-7 Date CURLY - 7 assessed: 01/16/25 Source: Developed by Ebony Levin Naman, Emiliano Huber and colleagues, with an educational elissa from [employer]. Physical exam (Primary Care) Vital Signs: Last Vital Signs Temp 97.7 F 06/05/25 10:34 Pulse 98 06/05/25 10:34 Resp 12 06/05/25 10:34 BP 120/78 06/05/25 10:34 Pulse Ox 97 06/05/25 10:34 Oxygen Delivery Method Room Air 06/05/25 10:34 BMI result Body Mass Index 29.5 Tobacco/Smoking Status: Tobacco use Status Tobacco use date assessed 06/05/25 06/05/25 10:37 Patient Tobacco Use Status Current everyday Tobacco 06/05/25 10:34 e-Cigarette/Vaping Use Never Used 06/05/25 10:34 Thrive Assessment: Date of Thrive Assessment Date Thrive assessed 01/16/25 06/05/25 10:31 Currently or been in a relationship where the following occur: No concerns reported Coding Level of Care Code Est Pt Level 4 (16284) Complex EM visit Add On G2211 Diagnoses Coronary artery disease involving [place] coronary artery of [place] heart without angina pectoris I25.10 Coronary Disease-Associated Artery/Lesion type: [place] artery [place] vs. 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 transplanted heart: [place] heart Associated angina: without angina Qualified Code(s): I25.10 - Atherosclerotic heart disease of [place] coronary artery without angina pectoris (2) HTN (hypertension): Code(s): I10 - Essential (primary) hypertension Category: Medical Qualifiers: Hypertension type: primary hypertension Qualified Code(s): I10 - Essential (primary) hypertension (3) Anemia: Code(s): D64.9 - Anemia, unspecified Category: Medical Qualifiers: Anemia type: unspecified type Qualified Code(s): D64.9 - Anemia, unspecified (4) Alcohol dependence: Code(s): F10.20 - Alcohol dependence, uncomplicated Category: Medical Qualifiers: Substance use status: unspecified alcohol-induced disorder Qualified Code(s): F10.29 - Alcohol dependence with unspecified alcohol-induced disorder (5) PAC (premature atrial contraction): Code(s): I49.1 - Atrial premature depolarization Category: Medical (6) Cobb esophagus with high grade dysplasia: Code(s): K22.711 - Cobb's esophagus with high grade dysplasia Category: Medical (7) UTI (urinary tract infection): Comment: resolved Code(s): N39.0 - Urinary tract infection, site not specified Category: Medical Plan . Orders: Orders Complete Blood Count no Diff 3 Months D64.9 - Anemia, unspecified, I10 - Essential (primary) hypertension, I25.10 - Atherosclerotic heart disease of [place] coronary artery without angina pectoris Vitamin B12 and Folate 3 Months D64.9 - Anemia, unspecified, I10 - Essential (primary) hypertension, I25.10 - Atherosclerotic heart disease of [place] coronary artery without angina pectoris Comprehensive Met. Panel 3 Months D64.9 - Anemia, unspecified, I10 - Essential (primary) hypertension, I25.10 - Atherosclerotic heart disease of [place] coronary artery without angina pectoris Lipid Panel 3 Months D64.9 - Anemia, unspecified, I10 - Essential (primary) hypertension, I25.10 - Atherosclerotic heart disease of [place] coronary artery without angina pectoris Medications: New [id number] fumarate 15 mg iron 1 tab PO DAILY 90 tabs 2RF Refilled diltiazem HCl CD (Cardizem CD) 120 mg PO QAM 90 caps 0RF naltrexone 50 mg PO DAILY 90 tabs 0RF pyridoxine (vitamin B6) 50 mg PO DAILY 90 tabs 0RF diltiazem HCl ER 60 mg PO BID 180 caps 1RF
[2025-06-05 10:34] VITALS: BP 120/78; PULSE 98; RESP 12; TEMP 36.5; O2SAT 97; BMI 29.5
== END 2025-06-05 11:22 | disposition home or self-care (01) ==
LOC: HO.HMCFM 10:26
PROVIDERS: PCP Nurse Practitioner Family; Visit Provider Nurse Practitioner Family
DX: I25.10 Atherosclerotic heart disease of native coronary artery without angina pectoris (principal); I10 Essential (primary) hypertension; D64.9 Anemia, unspecified; F10.29 Alcohol dependence with unspecified alcohol-induced disorder; I49.1 Atrial premature depolarization; K22.711 Barrett's esophagus with high grade dysplasia; N39.0 Urinary tract infection, site not specified